=== PATIENT | female | born 1990 | race African-American/Black ===

== ENCOUNTER 2025-04-18 20:00 | Emergency (ER) | payer BC, SELFPAY ==
[2025-04-18] VITALS (9 sets, daily range): BP systolic 109–133; BP diastolic 69–82; PULSE 76–85; RESP 13–19; TEMP 36.6–37.1; O2SAT 97–100
--- NOTE | ~2025-04-18 | XR_ITS ---
Examination: XR ankle RT 2V Clinical History: post-reduction Comparison: Several hours prior Technique: 2 views right ankle Findings/impression: 1. Mildly improved but still displaced ankle mortise with trimalleolar fracture. Reviewed, dictated and finalized at location R.
--- NOTE | ~2025-04-18 | CT_ITS ---
EXAMINATION: CT ankle RT wo con DATE: 04/19/2025 01:14 INDICATION: Right ankle fracture. TECHNIQUE: Computed tomography (CT) of the right ankle was performed without intravenous contrast. Automated exposure control and iterative reconstruction technique were employed. The dose-length product was 428.95 mGy-cm. COMPARISON: Right ankle radiographs 04/18/2025 FINDINGS: There is a transverse fracture of medial malleolus. The distal fracture fragment demonstrates 3 mm anterior displacement. There is 3 mm distraction anteriorly. There is a fracture of the posterior malleolus. The distal fracture fragment demonstrates posterior displacement measuring up to 10 mm laterally. There is a comminuted fracture of distal fibula with proximal medial fracture line 2.6 cm proximal to the level of the tibial plafond. The main distal fracture fragment demonstrates 7 mm posterior displacement. The talar dome is normal. There is ankle soft tissue swelling. IMPRESSION: 1. Trimalleolar ankle fracture. Reviewed, dictated and finalized at location E.
--- NOTE | ~2025-04-18 | XR_ITS ---
XR ankle RT 2V INDICATION: r ankle injury . COMPARISON: None. FINDINGS: Frontal, lateral and oblique views of the right ankle demonstrate acute displaced fracture of the medial and lateral malleolus and posterior tibial plafond. There is anterior subluxation of the tibial plafond relative to the talus. IMPRESSION: Trimalleolar fracture Reviewed, dictated and finalized at location S. IMPRESSION: Trimalleolar fracture
--- NOTE | 2025-04-18 22:20 | PC.NURSE ---
patient wanted leg adjusted, attempted to adjust leg in triage and patient started yelling at RN
--- NOTE | 2025-04-18 22:47 | ED.LOWEXIN ---
HPI - Extremity Injury (Lower) General Chief Complaint: Extremity Injury, Lower <NELSON Nance Last Filed: 04/19/25 02:51> Stated Complaint: leg injury <NELSON Nance Last Filed: 04/19/25 02:51> Time Seen by Provider: 04/18/25 22:41 <NELSON Nance Last Filed: 04/19/25 02:51> Source: patient <NELSON Nance Last Filed: 04/19/25 02:51> Mode of arrival: ambulatory <NELSON Nance Last Filed: 04/19/25 02:51> Limitations: no limitations <NELSON Nance Last Filed: 04/19/25 02:51> History of Present Illness HPI Narrative: Patient is a 35-year-old female who presents the ED with report of right ankle pain. Patient reports she was roller-skating tonight when she tripped and fell, rolling her right ankle. She is unable to bear any weight on her right ankle. Reports pain and swelling. Denies numbness. Denies any other injuries. Denies head injury, LOC. Has not had anything for pain. <Diana Priest PA-C - Last Filed: 04/19/25 02:51> Related Data Allergies/Adverse Reactions: Allergies Allergy/AdvReac Type Severity Reaction Status Date / Time No Known Allergies Allergy Verified 04/18/25 20:21 <Diana Priest PA-C - Last Filed: 04/19/25 02:51> Review of Systems Review of Systems: All systems reviewed & are unremarkable except as noted in HPI. <NELSON Nance Last Filed: 04/19/25 02:51> All systems reviewed & are unremarkable except as noted in HPI and below <NELSON Nance Last Filed: 04/19/25 02:51> Exam Narrative: GENERAL: Well appearing, well-nourished, non-toxic, in no acute distress. HEAD: Normocephalic, atraumatic. RESPIRATORY: Airway patent, respirations nonlabored CARDIOVASCULAR: Regular rate and rhythm. Pedal pulses intact and easily palpable MUSCULOSKELETAL: Moves all extremities. Moderate swelling and bruising throughout right ankle, particularly over medial malleoli. Diffuse tenderness. Sensation intact. SKIN: Warm, dry, normal color. NEURO: A&O X3. Speech clear. No ataxic movements. PSYCHIATRIC: Appropriate mood and affect. Normal interaction. <Diana Priest PA-C - Last Filed: 04/19/25 02:51> Course EMPLOYEE SERVICE OFFICER/PA Physician Supervision This visit was performed by both a physician and an APC. I performed all aspects of the MDM as documented. <Thai Willis MD - Last Filed: 04/19/25 04:34> Vital Signs Vital signs: Vital Signs Temperature 98.7 F 04/18/25 20:16 Pulse Rate 80 04/18/25 20:16 Respiratory Rate 18 04/18/25 20:16 Blood Pressure 133/77 04/18/25 20:16 Pulse Oximetry 100 04/18/25 20:16 Oxygen Delivery Room Air 04/18/25 20:16 Temperature 98.0 F 04/19/25 00:25 Pulse Rate 84 04/19/25 01:45 Respiratory Rate 21 H 04/19/25 01:45 Blood Pressure 101/67 04/19/25 00:31 Pulse Oximetry 98 04/19/25 01:42 Oxygen Delivery Room Air 04/19/25 00:25 <Diana Priest PA-C - Last Filed: 04/19/25 02:51> Vital Signs Temperature 98.7 F 04/18/25 20:16 Pulse Rate 80 04/18/25 20:16 Respiratory Rate 18 04/18/25 20:16 Blood Pressure 133/77 04/18/25 20:16 Pulse Oximetry 100 04/18/25 20:16 Oxygen Delivery Room Air 04/18/25 20:16 Temperature 98.0 F 04/19/25 00:25 Pulse Rate 84 04/19/25 01:45 Respiratory Rate 21 H 04/19/25 01:45 Blood Pressure 101/67 04/19/25 00:31 Pulse Oximetry 98 04/19/25 01:42 Oxygen Delivery Room Air 04/19/25 00:25 <Thai Willis MD - Last Filed: 04/19/25 04:34> Procedures Orthopedic Fracture Reduction Fracture #1: Fracture Reduction date: 04/19/25 <NELSON Nance Last Filed: 04/19/25 02:51> Fracture Reduction time: 00:00 <NELSON Nance Last Filed: 04/19/25 02:51> Time Out Performed: Yes <NELSON Nance Last Filed: 04/19/25 02:51> Side: right <NELSON Nance Last Filed: 04/19/25 02:51> Fracture Reduction Location: tibia and fibula <NELSON Nance Last Filed: 04/19/25 02:51> Analgesia: procedural sedation <NELSON Nance Last Filed: 04/19/25 02:51> Pre-Procedure Neuro Vascular Exam: normal <NELSON Nance Last Filed: 04/19/25 02:51> Technique: direct manipulation <NELSON Nance Last Filed: 04/19/25 02:51> Post Reduction X-rays Demonstrate: acceptable reduction <NELSON Nance Last Filed: 04/19/25 02:51> Post-reduction neuro exam: intact and no change <NELSON Nance Last Filed: 04/19/25 02:51> Post-reduction vascular exam: intact and no change <NELSON Nance Last Filed: 04/19/25 02:51> Splint Applied: Yes <NELSON Nance Last Filed: 04/19/25 02:51> Patient Tolerated Procedure: well and no complications <NELSON Nance Last Filed: 04/19/25 02:51> Orthopedic Splinting/Casting Injury #1: Splinting/Casting Date: 04/19/25 <NELSON Nance Last Filed: 04/19/25 02:51> Splinting/Casting Time: 00:00 <Diana Priest PA-C - Last Filed: 04/19/25 02:51> Side: right <NELSON Nance Last Filed: 04/19/25 02:51> Lower Extremity Injury Location: ankle <NELSON Nance Last Filed: 04/19/25 02:51> Lower Extremity Immobilizer: posterior splint and stirrup splint <NELSON Nance Last Filed: 04/19/25 02:51> Splint: customized in ED <NELSON Nance Last Filed: 04/19/25 02:51> Pre-Procedure Neuro Vascular Exam: normal <NELSON Nance Last Filed: 04/19/25 02:51> Post-Procedure Neuro Vascular Exam: normal <NELSON Nance Last Filed: 04/19/25 02:51> Other Orthopedic Equipment: crutches <NELSON Nance Last Filed: 04/19/25 02:51> Procedural Sedation Procedural Sedation #1: Procedural Sedation Date: 04/18/25 <Thai Willis MD - Last Filed: 04/19/25 04:34> Procedural Sedation Time: 23:50 <Thai Willis MD - Last Filed: 04/19/25 04:34> Presedation Evaluation: AAO x4 no focal neurologic deficits <Thai Willis MD - Last Filed: 04/19/25 04:34> Procedure: Right ankle fracture closed reduction <Thai Willis MD - Last Filed: 04/19/25 04:34> Provider Performed: sedation and procedure <Thai Willis MD - Last Filed: 04/19/25 04:34> Informed Consent Obtained: yes <Thai Willis MD - Last Filed: 04/19/25 04:34> Equipment in Room: capnography, traffic monitor specialist, oxygen, pulse oximeter and suction <Thai Willis MD - Last Filed: 04/19/25 04:34> Plan for Sedation: moderate sedation <Thai Willis MD - Last Filed: 04/19/25 04:34> ASA Class: I <Thai Willis MD - Last Filed: 04/19/25 04:34> Mallampati Classification: class II <Thai Willis MD - Last Filed: 04/19/25 04:34> NPO Status: last solid food (hours ago) <Thai Willis MD - Last Filed: 04/19/25 04:34> Explanation to Patient/Family: Risk/Benefits/Alternatives and Pt/Family agreed with plan <Thai Willis MD - Last Filed: 04/19/25 04:34> Pt. Educated on Procedural Sedation: Yes <Thai Willis MD - Last Filed: 04/19/25 04:34> Re-evaluated immediately prior: Yes <Thai Willis MD - Last Filed: 04/19/25 04:34> Preparation: traffic monitor specialist applied, pulse oximeter, capnometry used, supplemental O2 applied, suction/airway equipment at bedside and IV secured <Thai Willis MD - Last Filed: 04/19/25 04:34> Fentanyl: IV <Thai Willis MD - Last Filed: 04/19/25 04:34> Fentanyl dose (mcg): 50 <Thai Willis MD - Last Filed: 04/19/25 04:34> IV Propofol dose (mg): 100 <Thai Willis MD - Last Filed: 04/19/25 04:34> Patient Tolerated Procedure: well <Thai Willis MD - Last Filed: 04/19/25 04:34> Complications: none <Thai Willis MD - Last Filed: 04/19/25 04:34> Interventions: oxygen applied and airway repositioned <Thai Willis MD - Last Filed: 04/19/25 04:34> MDM - Extremity Injury (Lower) MDM Narrative Medical decision making narrative: X-ray of right ankle showing trimalleolar fracture. No dislocation but does show evidence of subluxation. Consistent with clinical picture. Patient is neurovascularly intact. Discussed case with Dr. Benjamin, orthopedics, reviewed imaging himself. Recommended to reduce medially. Repeat XRs post reduction, CT scan. Place in 90 degree posterior splint. Discharged to follow-up in office next week. Closed reduction of fracture was performed in the ED under procedural sedation using propofol. See procedure notes. Assisted by Dr. Willis, ED attending. Patient tolerated procedure well. Personal review of post reduction films does show improvement of alignment. CT scan obtained. Patient placed in posterior short-leg splint with stirrup. Given crutches. Will be discharged with pain medication, discussed rice therapy. Discussed return precautions. Advised to call orthopedic office Monday morning. Patient in agreement with plan. Discharged in stable condition. <Diana Priest PA-C - Last Filed: 04/19/25 02:51> X-ray of right ankle showing trimalleolar fracture. No dislocation but does show evidence of subluxation. Consistent with clinical picture. Patient is neurovascularly intact. Discussed case with Dr. Benjamin, orthopedics, reviewed imaging himself. Recommended to reduce medially. Repeat XRs post reduction, CT scan. Place in 90 degree posterior splint. Discharged to follow-up in office next week. Closed reduction of fracture was performed in the ED under procedural sedation using propofol. See procedure notes. Assisted by Dr. iWllis, ED attending. Patient tolerated procedure well. Personal review of post reduction films does show improvement of alignment. CT scan obtained. Patient placed in posterior short-leg splint with stirrup. Given crutches. Will be discharged with pain medication, discussed rice therapy. Discussed return precautions. Advised to call orthopedic office Monday morning. Patient in agreement with plan. Discharged in stable condition. This visit was performed by both a physician and an APC. I performed all aspects of the MDM as documented. <Thai Willis MD - Last Filed: 04/19/25 04:34> Differential Diagnosis Differential diagnosis: Likely ankle sprain and strain, fracture of toe, ankle fracture and other (foot fracture) <Thai Willis MD - Last Filed: 04/19/25 04:34> Medical Records Attestation: I reviewed the patient's medical records. <Diana Priest PA-C - Last Filed: 04/19/25 02:51> Imaging Data Attestation: I personally reviewed and interpreted this imaging study as follows: <NELSON Nance Last Filed: 04/19/25 02:51> Radiologist's impression: ITS Impressions Ankle X-Ray 04/18/25 20:34 IMPRESSION: Trimalleolar fracture <NELSON Nance Last Filed: 04/19/25 02:51> Discharge Plan Discharge Clinical Impression: Closed trimalleolar fracture of ankle Qualifiers: Encounter type: initial encounter Laterality: right Qualified Code(s): S82.851A - Displaced trimalleolar fracture of right lower leg, initial encounter for closed fracture <NELSON Nance Last Filed: 04/19/25 02:51> Patient Disposition: Home <NELSON Nance Filed: 04/19/25 02:51> Condition: Stable <NELSON Nance Last Filed: 04/19/25 02:51> Instructions: Antibiotic Form, Ankle Fracture (ED), Splint Care (ED) <NELSON Nance Last Filed: 04/19/25 02:51> Additional Instructions: Follow-up with urology for further evaluation of ankle fracture. Call office on Monday morning to make appointment. Wear splint until seen by orthopedics. Avoid any weight-bearing on right leg. Keep leg elevated as much as possible, recommend frequent icing to ankle. Recommend Tylenol/ibuprofen around the clock as needed for pain. You may take 600 mg of ibuprofen and 1000 mg of Tylenol every 6 hours. Oxycodone as needed for more severe pain. Return to the ED if you experience recurrent fall or injury, severe pain or swelling, numbness, or any other symptoms of concern. <NELSON Nance Last Filed: 04/19/25 02:51> Patient Language: Belarusian <NELSON Nance Filed: 04/19/25 02:51> Prescriptions: New oxycodone 5 mg tablet 5 mg PO Q6H PRN (Reason: pain) Qty: 20 0RF <NELSON Nance Filed: 04/19/25 02:51> Follow-up/Referrals: PHYSICIAN,PROPERTY LOSS INSURANCE CLAIM ADJUSTER [Primary Care Provider, Internal Medicine] Jony Benjamin MD [Physician, Orthopedics] Referral Note: ORTHOPEDICS <Diana Priest PA-C - Last Filed: 04/19/25 02:51> Stand Alone Forms: Work/School Release IP <Diana Priset PA-C - Last Filed: 04/19/25 02:51> Time of Disposition: 01:39 <Diana Priest PA-C - Last Filed: 04/19/25 02:51> 01:39 <Thai Willis MD - Last Filed: 04/19/25 04:34>
[2025-04-18] MEDS: KETOROLAC 30 MG/ML VIAL (*BKC) IV PUSH (22:57)
[2025-04-18] MEDS: HYDROmorphone HCL INJ (*CRX) 1 MG/ML SYR 0.5 MG IV PUSH (22:57)
--- NOTE | 2025-04-18 23:07 | PC.NURSE ---
Report received from ALLISON Thornton. Assumed care of patient at this time. Patient moved from room 2 to room 3 for moderate sedation.
[2025-04-18] MEDS: SODIUM CHLORIDE 0.9% IV 1,000 ML 999 ML IV CONT (23:30)
[2025-04-18] MEDS: PROPOFOL IV EMULSION 200 MG/20 ML VIAL 75 MG IV PUSH (23:50)
[2025-04-18] MEDS: fentaNYL CITRATE INJ (*CRX) 100 MCG/2 ML VIAL 50 MCG IV PUSH (23:52)
[2025-04-19] VITALS (16 sets, daily range): BP systolic 101–118; BP diastolic 67–94; PULSE 73–92; RESP 15–24; TEMP 36.6–36.8; O2SAT 97–100
[2025-04-19] MEDS: oxyCODONE HCL (*CRX) 5 MG TAB IR PO (01:52)
== END 2025-04-19 02:07 | disposition home or self-care (01) ==
PROVIDERS: Emergency Provider Physician Assistant
DX: S82.851A Displaced trimalleolar fracture of right lower leg, initial encounter for closed fracture (principal); V00.121A Fall from non-in-line roller-skates, initial encounter; Y93.51 Activity, roller skating (inline) and skateboarding
CPT/HCPCS: 27818; 73600; 73700; 96374; 96375; 99285; A9270; J1171; J1885; J2704; J3010; J7030

== ENCOUNTER 2025-04-25 01:01 | Day surgery (SDC) | payer BC, SELFPAY ==
--- NOTE | 2025-04-22 14:49 | SUR.PREOP ---
[facility] has started construction of its new state of the art ER which will open Spring 2026. With this, we anticipate parking may be a challenge for some our surgical patients and families. Parking spaces are limited but are available for all Surgical, obstetrics, and ER patients sharing this lot. If you arrive and find you are having a hard time finding a parking space, please note that we understand the challenges, please drive around the hospital and park near Hospital Entrance 1. When you enter this entrance, you can ask a volunteer to direct or take you back to the surgical waiting area to check in. We appreciate everyone?s understanding of these expected challenges while we build for your future. Report to the Outpatient Waiting Room, entrance under the green pavilion located off [address], at time _1200__ on date _04/25/25_. Planned Procedure Time: __1400__.? Time changes happen often and if your time is changed the preop area will call you the afternoon before. - You and your visitor will be asked to self-screen and do not enter if you have any COVID symptoms. Please call surgeon if you need to reschedule. - A mask is optional within the hospital at this time. Patients may have clear liquids (water, carbonated beverages, clear teas, apple juice) until 3 hours prior to surgery with a maximum of 20 ounces. - No food from midnight until time of surgery and no smoking, or chewing tobacco (or any form of nicotine). No chewing gum, candy or mints. Take only the following medications with a SIP of water on the morning of surgery: ____valacyclovir, oxycodone DO NOT STOP ANY OF YOUR OTHER PRESCRIPTION MEDICATIONS PRIOR TO SURGERY EXCEPT THE FOLLOWING Hold all vitamins and supplements for 3 days per anesthesiologist. Medications to discontinue per physician _none___ Date to take last dose of probiotics today__04.22.25___ Please no make-up, nail liberian, hairspray, perfume, deodorant, or body powder the day of surgery.? No jewelry (including any body piercings) or valuables the day of surgery, leave them at home.? Please take a shower or bath the night before, or the morning of, surgery with an antibacterial soap.? Wear comfortable, loose fitting clothing.? - Jewelry must be removed prior to entering the operating room.? Rings and piercings that are not removed may be cut off. - The hospital will not accept responsibility for valuables.? - Please leave all valuables, including medications, at home the day of surgery. If you are going home after surgery, a licensed ambulance driver must drive you home.? - NO public transportation without another adult if you receive anesthesia. - We recommend that an adult stay with you for 24 hours following discharge. - We also recommend that you do not drive, make important decision, drink alcoholic beverages, or take any drugs that were not prescribed by your health care provider for at least 24 hours after your discharge time. Follow any additional instructions given to you from your surgeon. Telephone instructions given to __Franny____and asked if any additional questions and then verbalized understanding. Patient advised to call surgeon office or pre surgery nurse liaison [phone] if any additional questions.
[2025-04-22 15:01] VITALS: BMI 31.2
[2025-04-25] VITALS (10 sets, daily range): BP systolic 100–121; BP diastolic 59–80; PULSE 72–84; RESP 10–19; TEMP 36.4–36.7; O2SAT 93–100; BMI 32.6
--- NOTE | ~2025-04-25 | XR_ITS ---
EXAM/PROCEDURE: XR surgery orthopedic HISTORY: RIGHT ANKLE ORIF COMPARISON: April 18 and TECHNIQUE: 5 static fluoroscopic images were submitted for interpretation. Total exposure time was 58 seconds. DAP equals 0.7120 Gycm2. Air, 3.5918 mGy. FINDINGS: Images demonstrate ORIF of a medial malleolar fracture and distal tibial fracture. IMPRESSION: Images for control purposes in the OR. Reviewed, dictated and finalized at location A.
--- OUTSIDE RECORDS SUMMARY | 2025-04-25 01:04 | XMS_ITS | Clinical Summary ---
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 Gender Identity Not on file Sexual Orientation Not on file Plan of Treatment Health Maintenance Due Date Last Done Comments Hepatitis C Virus (HCV) Screening 1992 Pap Smear 2013 Human Papillomavirus (HPV) Immunization (2 - 3-dose series) 12/11/2015 11/13/2015 Cervical Cancer Screening (CCS) 2022 HPV/Cotest 2022 Influenza Immunization (#1) 2025 SARS-COV-2 Immunization ( season) 2025 Respiratory Syncytial Virus (RSV) Immunization (Adult) (1 - 1-dose 75+ series) 2067 Hepatitis B Immunization Completed 998, 03/16/1998, 11/11/1996 DTaP/Tdap/Td Immunization Discontinued 2015, 11/11/1996, 10/25/1993, Additional history exists TdaP Immunization Completed 11/13/2015 Meningococcal Immunization (ACWY) Aged Out No longer eligible based on patient's age to complete this topic Pneumococcal Immunization Combined Aged Out No longer eligible based on patient's age to complete this topic Rotavirus Immunization Aged Out No lo nger eligible based on patient's age to complete this topic Insurance [employer] on file
--- OUTSIDE RECORDS SUMMARY | 2025-04-25 01:04 | XMS_ITS | Clinical Summary ---
Author Organization [facility] Address [address] [place] [address] Care Team Providers Care Research Asst Name Role Phone None, Provider MD Primary Care Provider Unavaila ble Allergies No known active allergies Medications levonorgestrel (TATIANNA) 13.5 MG IUD Tatianna 14 mcg/24 hrs (3 yrs) 13.5 mg intrauterine device Take by intrauterine route. Active valACYclovir 1 g tablet Take 1 tablet by mouth daily. Active vitamin B-12 100 MCG tablet Take 50 mcg by mouth daily. Active B complex-C Cap capsule Take 1 capsule by mouth daily. Active HYDROcodone-alejandra taminophen 5-325 MG tabletIndicatio ns:Acute Pain < 7 Day Supply Take 1-2 tablets by mouth every 6 (six) hours as needed for Pain. Indications: Acute Pain < 7 Day Supply 20 tablet Active Family History Medical History Relation Comments No Known Problems Brother Hypertension Father No Known Problems Mother Migraines Sister 1 Asthma Sister 2 Relation Status Comments Brother Alive Father Alive Mother Alive Sister 1 Alive Sister 2 Alive Social History Tobacco Use Types Packs/Day Years Used Date Smoking Tobacco: Never Smokeless Tobacco: Never Alcohol Use Standard Drinks/Week Comments Not Currently 0 (1 standard drink = 0.6 oz pure alcohol) 1-2 drinks per week, maybe wine. 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 Gender Identity Not on file Sexual Orientation Not on file Last Filed Vital Signs Vital Sign Reading Time Taken Comments Blood Pressure 106/70 08/19/2020 11:14 AM JUDICIAL ADMINISTRATIVE ASSISTANT Pulse 68 08/19/2020 11:14 AM JUDICIAL ADMINISTRATIVE ASSISTANT Temperature 36.6 C (97.9 F) 08/19/2020 11:14 AM JUDICIAL ADMINISTRATIVE ASSISTANT Respiratory Rate 16 08/19/2020 11:1 4 AM JUDICIAL ADMINISTRATIVE ASSISTANT Oxygen Saturation 100% 08/19/2020 11: 14 AM JUDICIAL ADMINISTRATIVE ASSISTANT Inhaled Oxygen Concentration - - Weight 63.5 kg (139 lb 15.9 oz) 08/19/2020 7:00 AM JUDICIAL ADMINISTRATIVE ASSISTANT Height 154.9 cm (5' 1) 08/19/2020 7:00 AM JUDICIAL ADMINISTRATIVE ASSISTANT Body Mass Index 26.45 08/19/2020 7:00 AM JUDICIAL ADMINISTRATIVE ASSISTANT Plan of Treatment Health Maintenance Due Date Last Done Comments Cervical Cancer Screening Pap Smear (Age 30 to 64) Every 3 Years 1992 Annual Physical 1995 Hepatitis C 2010 Hepatitis B Vaccines (1 of 3 - 19+ 3-dose series) 2011 HPV Vaccines (2 - 3-dose series) 12/11/2015 11/13/2015 Cervical Cancer Screening Pap with HPV Testing (Age 30 to 64) Every 5 Years 2022 Cervical Cancer Screening with HPV 2022 COVID-19 Vaccine ( season) 2025 Influenza Adult (#1) 2025 DTaP, Tdap and Td Vaccines (2 - Td or Tdap) 11/12/2025 11/13/2015, 11/11/1996, 10/25/1993, Additional history exists Hepatitis A Vaccines Aged Out No long er eligible based on patient's age to complete this topic Meningococcal B Vaccine Aged Out No l onger eligible based on patient's age to complete this topic Meningococcal Vaccine Aged Out No maria victoria kristin eligible based on patient's age to complete this topic Pneumococcal Vaccine: Pediatrics (0 to 5 Years) and At-Risk Patients (6 to 49 Years) Aged Out No longer eligible based on patient's age to complete this topic RSV Immunizations Under 20 Months Aged Out No longer eligible based on patient's age to complete this topic Insurance [facility] Care Teams Research Asst Relationship Specialty Start Date End Date None, Provider, PCP - General 07/21/20
--- NOTE | 2025-04-25 10:51 | PM.IMHP ---
H&P: HPI History of Present Illness Date/Time: 04/25/25 10:51 Chief Complaint: Right ankle trimalleolar fracture unstable with subluxation Narrative: The patient is a 35-year-old female present to the emergency room with a right ankle fracture subluxation after a roller skating accident that she had on April 18, 2025 she was placed in a posterior splint to the time and she has been nonweightbearing since that time. 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 [facility] Social History Social History Smoking status: Never smoker Living arrangements: with family Spiritual care concerns: No Meds Home Medications and Allergies Home Medications ?Medication ?Instructions ?Recorded ?Confirmed ?Type oxycodone 5 mg tablet 5 mg PO Q6H PRN pain #20 tabs 04/19/25 04/22/25 Rx Lactobacillus 2 cap PO DAILY 04/22/25 04/22/25 History acidophil,plantar-Bifido no.7 15 billion cell capsule ibuprofen 200 mg capsule 600 mg PO Q6H PRN pain 04/22/25 04/22/25 History valacyclovir 1 gram tablet 1,000 mg PO DAILY 04/22/25 04/22/25 History Allergies Allergy/AdvReac Type Severity Reaction Status Date / Time No Known Allergies Allergy Verified 04/22/25 14:50 Exam Narrative: Examination of the patient's right lower extremity shows that she is in a well-padded posterior splint. 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 This is a closed injury with no evidence of skin compromise. Given the unstable nature of the fracture, I recommend surgical management consisting of a right ankle open reduction and internal fixation (ORIF). Discussion of Risks and Benefits: The risks, benefits, and alternatives were discussed in detail with the patient. Without surgery, there is a significant likelihood of developing symptomatic post-traumatic arthritis due to malalignment and loss of joint congruity. With surgical intervention, the goal is to restore the normal anatomy of the ankle joint, thereby significantly reducing the long-term risk of post-traumatic arthritis. However, the patient was informed of potential complications associated with surgery, including infection, injury to surrounding nerves and blood vessels, deep venous thrombosis (DVT), hardware irritation that may require later removal, and possible wound healing issues or skin compromise over either the medial or lateral aspect of the ankle. These complications could necessitate further surgery. The patient verbalized understanding of these risks and elected to proceed with operative management. Postoperative Instructions: The patient was instructed that following surgery, she will need to remain [id number] on the operative extremity. She has already made plans to obtain a knee scooter to aid with mobility. She was advised to take aspirin 81 mg twice daily?one dose in the morning and one in the evening?to reduce the risk of postoperative DVT. Plan: Proceed with right ankle open reduction and internal fixation.
--- NOTE | 2025-04-25 11:34 | ECG_ITS ---
Test Date: 2025-04-25 12:55:07 Measurements Intervals [place] Rate: 78 P: 65 [place]: 161 QRS: 37 QRSD: 87 T: 5 QT: 378 QTc: 432 Interpretive Statements SINUS RHYTHM WITH SINUS ARRHYTHMIA BORDERLINE ST-T WAVE ABNORMALITY- INFERIOR LEADS BASELINE ARTIFACT- I, III, AVR, AVL BORDERLINE ECG No previous ECG available for comparison Electronically Signed On 04-25-2025 12:58:09 CDT by Rodrigue Merchant D.O.
--- NOTE | 2025-04-25 12:19 | WPDHPUPDATE1 ---
History and Physical Update Update Date/Time: 04/25/25 12:19 History and Physical has been reviewed, including an updated exam of the patient. There are NO changes in the patient's condition. Risks, benefits, and alternatives have been discussed and questions answered. Patient agrees to proceed with procedure. 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 This is a closed injury with no evidence of skin compromise. Given the unstable nature of the fracture, I recommend surgical management consisting of a right ankle open reduction and internal fixation (ORIF). Discussion of Risks and Benefits: The risks, benefits, and alternatives were discussed in detail with the patient. Without surgery, there is a significant likelihood of developing symptomatic post-traumatic arthritis due to malalignment and loss of joint congruity. With surgical intervention, the goal is to restore the normal anatomy of the ankle joint, thereby significantly reducing the long-term risk of post-traumatic arthritis. However, the patient was informed of potential complications associated with surgery, including infection, injury to surrounding nerves and blood vessels, deep venous thrombosis (DVT), hardware irritation that may require later removal, and possible wound healing issues or skin compromise over either the medial or lateral aspect of the ankle. These complications could necessitate further surgery. The patient verbalized understanding of these risks and elected to proceed with operative management. Postoperative Instructions: The patient was instructed that following surgery, she will need to remain [id number] on the operative extremity. She has already made plans to obtain a knee scooter to aid with mobility. She was advised to take aspirin 81 mg twice daily?one dose in the morning and one in the evening?to reduce the risk of postoperative DVT. Plan: Proceed with right ankle open reduction and internal fixation.
[2025-04-25] MEDS: KETOROLAC 15 MG/ML VIAL (*BKC) IV PUSH ×2 (13:15→16:09)
[2025-04-25 13:22] LABS: Hematocrit 38.3 % (37.0-47.0); Hemoglobin 12.6 g/dL (12.0-15.0); Mean Corpuscular HGB Conc 32.9 g/dl (32-36); Mean Corpuscular Hemoglobin 29.7 pg (26-34); Mean Corpuscular Volume 90.3 fl (80-100); Platelet Count Result 273 k/mm3 (150-375); Red Blood Count 4.24 M/mm3 (4.2-5.4); White Blood Count 11.0 K/mm3 (4.5-10.0)
[2025-04-25] MEDS: ACETAMINOPHEN 500 MG TABLET 1000 MG PO (13:26)
--- NOTE | 2025-04-25 13:33 | WPDANESEPPF ---
Anes - Initial Pre Proc Eval Procedure: Operation Date: 04/25/25 14:00 Proposed Procedures p Right Ankle Trimalleolar Open Reduction Internal Fixation - Jony Benjamin MD Date/Time: 04/25/25 13:33 Surgeon: Jony Benjamin MD Pre Op Diagnosis: right ankle fx Patient Data Age: 35 Gender: F Height: 1.55 m Weight: 78.4 kg Last Vital Signs Temp 36.7 C 04/25/25 12:06 Pulse 72 04/25/25 12:06 Resp 18 04/25/25 12:06 BP 106/70 04/25/25 12:06 Pulse Ox 99 04/25/25 12:06 O2 Del Method Room Air 04/25/25 12:06 Allergies Allergy/AdvReac Type Severity Reaction Status Date / Time No Known Allergies Allergy Verified 04/22/25 14:50 Home Medications ?Medication ?Instructions ?Recorded ?Confirmed ?Type oxycodone 5 mg tablet 5 mg PO Q6H PRN pain #20 tabs 04/19/25 04/22/25 Rx Lactobacillus 2 cap PO DAILY 04/22/25 04/22/25 History acidophil,plantar-Bifido no.7 15 billion cell capsule ibuprofen 200 mg capsule 600 mg PO Q6H PRN pain 04/22/25 04/22/25 History valacyclovir 1 gram tablet 1,000 mg PO DAILY 04/22/25 04/22/25 History Laboratory Tests 04/25/25 13:12 WBC 11.0 H K/mm3 (4.5-10.0) RBC 4.24 M/mm3 (4.2-5.4) Hgb 12.6 g/dL (12.0-15.0) Hct 38.3 % (37.0-47.0) MCV 90.3 fl (80-100) MCH 29.7 pg (26-34) MCHC 32.9 g/dl (32-36) RDW 11.3 L % (11.5-14.5) Plt Count 273 k/mm3 (150-375) MPV 9.2 fl (7.4-10.4) Sodium Pending Potassium Pending Chloride Pending Carbon Dioxide Pending Anion Gap Pending BUN Pending Creatinine Pending Estim Creat Clear Calc Pending Estimated GFR Pending Glucose Pending Calcium Pending Total Bilirubin Pending AST Pending ALT Pending Alkaline Phosphatase Pending C-Reactive Protein Pending Total Protein Pending Albumin Pending Patient hx anesthesia problems: none Family hx anesthesia problems: none Results Review: All pre-operative results and documents have been reviewed as part of the pre-operative evaluation. [facility] Social History Social History Smoking status: Never smoker Living arrangements: with family Spiritual care concerns: No Anes - Eval Final PreProcedure Day of Procedure 04/25/25 13:33 Patient weight: overweight Heart: regular rate and rhythm Lungs: clear to auscultation Airway: Mallampati scale class II Neurological: alert and oriented Last oral intake: >/= 8 hours ASA classification: II Emergent: no Anesthetic plan: proceed Anesthesia type and monitoring: general LMA and standard monitoring Results Review: All pre-operative results and documents have been reviewed as part of the pre-operative evaluation. Informed Consent: The patient's anesthetic plan and its attendant risks and benefits were discussed with the patient/family/POA. Questions were solicited and answers provided to the satisfaction of the patient/family/POA.
[2025-04-25 13:38] LABS: Alanine Aminotransferase 14 U/L (6-35); Albumin Level 4.2 g/dL (3.5-5.1); Alkaline Phosphatase 51 U/L (38-126); Anion Gap 7 mmol/L (4-12); Aspartate Amino Transferase 36 U/L (14-36); Bilirubin,Total 0.6 mg/dL (0.2-1.3); Blood Urea Nitrogen 9 mg/dL (7-17); CRP < 0.5 mg/dL (<1.0); Calcium 8.5 mg/dL (8.4-10.2); Carbon Dioxide 26 mmol/L (22-30); Chloride 102 mmol/L (98-107); Estimated CRCL calculation 96 ml/min; Estimated Glomerular Filt Rate > 60; Glucose 86 mg/dL (65-110); Potassium 3.6 mmol/L (3.4-5.0); Sodium 135 mmol/L (137-145); Total Protein 7.2 g/dL (6.3-8.2)
[2025-04-25] MEDS: ceFAZolin 2 GM in SODIUM CHLORIDE 0.9% IV 50 ML 100 ML IVPB (13:50)
[2025-04-25] MEDS: LIDO 1%/EPINEPHRINE 1:100,000 50 ML VIAL (14:27)
[2025-04-25] MEDS: LACTATED RINGERS 1,000 ML 30 ML IV CONT ×3 (16:18→17:05)
--- NOTE | 2025-04-25 16:33 | W.PM.PROC2 ---
Procedure Note - Detailed Date of Procedure 04/25/25 Pre-op Diagnosis Right ankle trimalleolar ankle fracture Post-op Diagnosis Same Procedure Performed 1. Right ankle trimalleolar ankle fracture open reduction internal fixation 2. Intraoperative fluoroscopy 3. Right lower extremity short-leg splint application Surgeon Jony Benjamin MD Anesthesia General Indications The patient is a 35-year-old female who sustained a right ankle trimalleolar ankle fracture skating should unstable right ankle fracture with subluxation. Findings Right ankle trimalleolar ankle fracture with a stable syndesmosis Description of Procedure After interviewing the patient in the holding area and marking the correct extremity which was the right foot the patient and her sister were again advised of the procedure that was going to be performed. I then marked the right foot. I answered all questions. The patient was then brought to the operating room placed in the supine position of which time she underwent general anesthesia she was then placed on the operating room table. The right lower extremity was prepped and draped in a standard sterile fashion. Tourniquet was not used for the procedure. Time-out was performed prior to incision tube confirmed correct patient correct site of surgery correct procedure as well as 2 verified that IV antibiotics were administered within 1 hour of incision time. I 1st turned my attention to the lateral aspect of the patient's right ankle which time I made a incision approximately 8 in long dissection carried down identified the fracture site performed a irrigation and debridement of the fracture side effect we the hematoma. I then used a reduction clamp in order to obtain anatomic reduction. Of note is that there was a comminuted portion of the anterior aspect of the fracture site for which I was planning on performing the interfragmentary fixation. I managed to get the stable fragment compressed with anterior to posterior screw placed in compression mode with a leg by technique. After this was done I placed a lateral fibular plate and placed multiple screws distal to the fracture and proximal to the fracture. Fluoroscopy was used to verify placement of the plate prior to screw placement. After this was done I then turned my attention to the medial aspect of the patient's ankle which time I made a incision approximately 4 in in length dissection was carried down being careful to avoid in the saphenous and nerve. -obtain reduction using a reduction clamp and I placed 2 partially trimmed threaded cannulated screws measuring at 40 mm in length across the fracture site. Fluoroscopy again was used to verify the indeed this was placed correctly and out of the ankle joint. I did obtain AP and lateral views and verified that the 2 screws medially as well as a lateral plate was in good position and again I stressed the syndesmosis by performing a stress view on the AP view and indeed the syndesmosis was stable there was no need for a syndesmotic screw. I then irrigated closed in closed incision sites using 2-0 Vicryl suture in the dermal layer and then running nylon suture on the lateral side and interrupted vertical mattress suture on the medial side. Prior to closure I injected with lidocaine with 1% lidocaine and epinephrine. I then placed Xeroform I placed Giraldo well as a 3 ABDs and padded the ankle very well and then a placed a posterior splint with in neutral flexion. Patient was then transferred to the recovery room in stable condition. The patient will be strict nonweightbearing on this extremity she was advised to take 81 mg of aspirin daily for at least 4 weeks. She is to take ibuprofen as well as Kelly for pain. I called the patient's father elected noted the surgery went well. Implants Ibjan implants. Estimated Blood Loss 100 Tourniquet Time Total Tourniquet Time: 0 Drains No Packing No Pathology None sent Complications No immediate complications Condition Stable Disposition PACU
[2025-04-25] MEDS: fentaNYL CITRATE INJ (*CRX) 100 MCG/2 ML VIAL 25 MCG IV PUSH ×2 (16:45→16:56)
[2025-04-25] MEDS: ONDANSETRON INJ 4 MG/2 ML VIAL IV PUSH (17:05)
[2025-04-25] MEDS: oxyCODONE HCL (*CRX) 5 MG TAB IR PO (18:16)
== END 2025-04-25 18:49 | disposition home or self-care (01) ==
PROVIDERS: Visit Provider Orthopaedic Surgery
PROC: (CPT 27822; principal; 2025-04-25 14:00)
DX: S82.851A Displaced trimalleolar fracture of right lower leg, initial encounter for closed fracture (principal); X58.XXXA Exposure to other specified factors, initial encounter; Y93.51 Activity, roller skating (inline) and skateboarding
CPT/HCPCS: 27822; 36415; 80053; 85027; 86140; 93005; 99199; J0690; A9270; C1713; J1100; J1171; J1200; J1885; J2004; J2250; J2405; J2704; J3010; J7120